=== PATIENT | male | born 1985 | race African-American/Black ===

== ENCOUNTER 2019-01-19 08:49 | Emergency (ER) | payer SELFPAY ==
[~2019-01-19] VITALS: Ht 185.4 cm; Wt 111.0 kg
[2019-01-19 10:39] LABS: CLARITY URINE CLEAR (CLEAR); COLOR URINE YELLOW (YELLOW); KETONES URINE 1+ (NEGATIVE); LEUKOCYTE ESTERASE URINE NEGATIVE (NEGATIVE); NITRITE URINE NEGATIVE (NEGATIVE); OCCULT BLOOD URINE NEGATIVE (NEGATIVE); PROTEIN URINE NEGATIVE (NEGATIVE); SPECIFIC GRAVITY URINE 1.015 (1.005-1.030)
[2019-01-19 11:45] VITALS: BP 152/113
== END 2019-01-19 11:48 | disposition home or self-care (01) ==
LOC: ER 08:49
DX: F31.9 Bipolar disorder, unspecified (principal); R31.9 Hematuria, unspecified; F12.10 Cannabis abuse, uncomplicated
CPT/HCPCS: 99283

== ENCOUNTER 2019-02-02 09:08 | Emergency (ER) | payer SELFPAY ==
[~2019-02-02] VITALS: Ht 175.3 cm; Wt 95.0 kg
[2019-02-02] MEDS ORDERED: OXYCODONE HCL/ACETAMINOPHEN 5/325MG TABLET PO ONE (09:30)
[2019-02-02 15:17] VITALS: BP 165/99
== END 2019-02-02 15:17 | disposition home or self-care (01) ==
LOC: ER 09:37
DX: M17.5 Other unilateral secondary osteoarthritis of knee (principal); G89.29 Other chronic pain; I10 Essential (primary) hypertension; F12.10 Cannabis abuse, uncomplicated
CPT/HCPCS: 73560; 99283

== ENCOUNTER 2019-02-03 07:39 | Emergency (ER) | payer SELFPAY ==
[~2019-02-03] VITALS: Ht 182.9 cm; Wt 78.0 kg
[2019-02-03] MEDS ORDERED: ACETAMINOPHEN 325MG TABLET PO ONE (08:15)
[2019-02-03] MEDS ORDERED: CLONIDINE 0.1MG TABLET PO ONE (09:30)
[2019-02-03 13:19] VITALS: BP 148/89
== END 2019-02-03 13:21 | disposition home or self-care (01) ==
LOC: ER 07:39
DX: M79.10 Myalgia, unspecified site (principal); Z59.0 Homelessness; I10 Essential (primary) hypertension; F12.10 Cannabis abuse, uncomplicated
CPT/HCPCS: 99283

== ENCOUNTER 2019-02-03 23:01 | Emergency (ER) | payer MEDICAID ==
[~2019-02-03] VITALS: Ht 177.8 cm; Wt 113.0 kg
[2019-02-04 00:16] LABS: CHLORIDE 108 mEq/L (98-107)
[2019-02-04 00:20] LABS: ETHANOL BLOOD < 10 mg/dL
[2019-02-04 00:39] LABS: BASOPHILS % 1.2 % (0.0-2.0); EOSINOPHILS % 1.6 % (0.0-5.0); HEMOGLOBIN. 13.9 g/dL (14.0-18.0); LYMPHOCYTES % 30.3 % (20.0-50.0); MEAN CORPUSCULAR HEMOGLOBIN 28.3 pg (28.0-32.0); MEAN CORPUSCULAR VOLUME 85.5 fL (80.0-94.0); MEAN PLATELET VOLUME 9.7 fl (7.4-10.4); MONOCYTES % 9.2 % (2.0-8.0); NEUTROPHILS % 57.7 % (40.0-76.0); PLATELET 249 x1000/uL (130-400); RED BLOOD CELL COUNT 4.92 mill/uL (4.7-6.1); RED CELL DISTRIBUTION WIDTH 14.5 % (11.6-14.6)
[2019-02-04 02:19] LABS: *AMPHETAMINES SCREEN URINE NEGATIVE (NEGATIVE); *BARBITURATES SCREEN URINE NEGATIVE (NEGATIVE); *BENZODIAZEPINES SCREEN URINE NEGATIVE (NEGATIVE); *COCAINE SCREEN URINE NEGATIVE (NEGATIVE); METHADONE URINE SCREEN NEGATIVE (NEGATIVE); OPIATES URINE SCREEN NEGATIVE (NEGATIVE)
[2019-02-04 02:20] LABS: CANNABINOID URINE SCREEN PRESUMTIVE POSITIVE (NEGATIVE); PHENCYCLIDINE URINE SCREEN NEGATIVE (NEGATIVE)
[2019-02-04 04:35] VITALS: BP 153/106
== END 2019-02-04 04:57 | disposition home or self-care (01) ==
LOC: ER 23:01
DX: R53.1 Weakness (principal); I10 Essential (primary) hypertension; Z59.0 Homelessness; F31.9 Bipolar disorder, unspecified
CPT/HCPCS: 36415; 80048; 80305; 80320; 85025; 99283; Z7610; G0480

== ENCOUNTER 2019-02-04 05:20 | Emergency (ER) | payer MEDICAID ==
[~2019-02-04] VITALS: Ht 180.3 cm; Wt 103.5 kg
[2019-02-04 06:54] LABS: CLARITY URINE CLOUDY (CLEAR); COLOR URINE DARK YELLOW (YELLOW); KETONES URINE TRACE (NEGATIVE); LEUKOCYTE ESTERASE URINE NEGATIVE (NEGATIVE); NITRITE URINE NEGATIVE (NEGATIVE); OCCULT BLOOD URINE NEGATIVE (NEGATIVE); PROTEIN URINE 1+ (NEGATIVE); SPECIFIC GRAVITY URINE 1.044 (1.005-1.030)
[2019-02-04 06:56] LABS: HEMATOCRIT. 43.2 % (42.0-52.0); HEMOGLOBIN. 14.3 g/dL (14.0-18.0); MEAN CORPUSCULAR HEMOGLOBIN 28.4 pg (28.0-32.0); MEAN CORPUSCULAR VOLUME 85.5 fL (80.0-94.0); MEAN PLATELET VOLUME 9.2 fl (7.4-10.4); PLATELET 230 x1000/uL (130-400); RED BLOOD CELL COUNT 5.05 mill/uL (4.7-6.1); RED CELL DISTRIBUTION WIDTH 14.5 % (11.6-14.6)
[2019-02-04 07:03] LABS: CHLORIDE 107 mEq/L (98-107)
[2019-02-04 07:06] LABS: ETHANOL BLOOD < 10 mg/dL
[2019-02-04 07:15] LABS: *AMPHETAMINES SCREEN URINE NEGATIVE (NEGATIVE); *BARBITURATES SCREEN URINE NEGATIVE (NEGATIVE); *BENZODIAZEPINES SCREEN URINE NEGATIVE (NEGATIVE); *COCAINE SCREEN URINE NEGATIVE (NEGATIVE); CANNABINOID URINE SCREEN PRESUMTIVE POSITIVE (NEGATIVE); METHADONE URINE SCREEN NEGATIVE (NEGATIVE); OPIATES URINE SCREEN NEGATIVE (NEGATIVE); PHENCYCLIDINE URINE SCREEN NEGATIVE (NEGATIVE)
[2019-02-04 07:51] LABS: ATYPICAL LYMPHOCYTES 1; PLATELET ESTIMATE NORMAL
[2019-02-04] MEDS ORDERED: POTASSIUM CHLORIDE 20MEQ TABLET SR PO ONE (14:00)
[2019-02-04] MEDS ORDERED: ACETAMINOPHEN 325MG TABLET PO ONE (21:30)
[2019-02-05] MEDS ORDERED: ACETAMINOPHEN 325MG TABLET PO ONE (12:15)
[2019-02-05 15:13] VITALS: BP 126/79
== END 2019-02-05 16:00 ==
LOC: ER 05:20
DX: R45.851 Suicidal ideations (principal); E87.6 Hypokalemia; I10 Essential (primary) hypertension; R73.9 Hyperglycemia, unspecified; R74.0 Nonspecific elevation of levels of transaminase and lactic acid dehydrogenase [LDH]; N39.0 Urinary tract infection, site not specified; Z59.0 Homelessness; Z91.19 Patient's noncompliance with other medical treatment and regimen; F12.90 Cannabis use, unspecified, uncomplicated
CPT/HCPCS: 36415; 80048; 80076; 80305; 80307; 80320; 80329; 81003; 85025; 87086; 99285; Z7610; G0480